=== PATIENT | female | born 1950 | race Caucasian/White ===

== ENCOUNTER → 2022-04-07 | Outpatient (REF) | payer MEDICARE ==
[2022-04-07 10:31] LABS: HEMATOCRIT 41.1 % (36.0-47.0); HEMOGLOBIN 13.3 g/dl (12.0-15.5); MEAN CORPUSCULAR HEMOGLOBIN 29.8 pg (27.0-33.0); MEAN CORPUSCULAR HGB CONC 32.4 g/dl (32.0-36.5); MEAN CORPUSCULAR VOLUME 91.9 fl (80.0-96.0); PLATELET COUNT, AUTOMATED 247 10^3/uL (150-450); RED BLOOD COUNT 4.47 10^6/uL (4.00-5.40)
[2022-04-07 11:03] LABS: ALT/SGPT 19 U/L (12-78); BLOOD UREA NITROGEN 18 MG/DL (7-18); CALCIUM LEVEL 9.6 MG/DL (8.8-10.2); CARBON DIOXIDE LEVEL 25 MEQ/L (21-32); CHLORIDE LEVEL 109 MEQ/L (98-107); CREATININE FOR GFR 0.75 MG/DL (0.55-1.30); GLOMERULAR FILTRATION RATE > 60.0 (>39); GLUCOSE, FASTING 136 MG/DL (70-100); POTASSIUM SERUM 4.5 MEQ/L (3.5-5.1); SODIUM LEVEL 142 MEQ/L (136-145)
[2022-04-07 11:04] LABS: BILIRUBIN,TOTAL 0.6 MG/DL (0.2-1.0); CHOLESTEROL LEVEL 190 MG/DL (<200); CHOLESTEROL RISK RATIO 3.166 (<5); FREE T4 0.99 NG/DL (0.76-1.46); HDL CHOLESTEROL 60 MG/DL (>40); LDL CHOLESTEROL 108 MG/DL (<100); NON-HDL-C 130 MG/DL; THYROID STIMULATING HORMONE 0.955 uIU/ML (0.358-3.740); TOTAL PROTEIN 6.4 GM/DL (6.4-8.2); TRIGLYCERIDES LEVEL 111 MG/DL (<150)
[2022-04-07 11:22] LABS: MALB URINE SIEMENS 23.5 MG/L; MAU/CREAT RATIO 15.2 MCG/MG (0.0-30.0)
[2022-04-07 11:50] LABS: HEMOGLOBIN A1c 6.7 %
== END ==
LOC: M SFHCADAM 08:04
PROVIDERS: ATTEND Family Medicine
DX: E11.9 Type 2 diabetes mellitus without complications (principal); E78.5 Hyperlipidemia, unspecified; I11.9 Hypertensive heart disease without heart failure

== ENCOUNTER → 2022-04-28 | Outpatient (CLI) | payer MEDICARE | LOC: M WHC 13:03 | PROVIDERS: ATTEND Family Medicine | DX: Z12.31 Encounter for screening mammogram for malignant neoplasm of breast (principal); Z13.820 Encounter for screening for osteoporosis; M85.851 Other specified disorders of bone density and structure, right thigh; M85.852 Other specified disorders of bone density and structure, left thigh ==

== ENCOUNTER → 2022-07-11 | Outpatient (CLI) | payer MEDICARE | LOC: M PLAIMG 14:14 | PROVIDERS: ATTEND Physician Assistant | DX: R05.3 Chronic cough (principal); U09.9 Post COVID-19 condition, unspecified ==

== ENCOUNTER → 2022-09-22 | Outpatient (REF) | payer MEDICARE ==
[2022-09-22 13:44] LABS: HEMOGLOBIN A1c 7.2 % (4.0-6.0)
[2022-09-22 14:00] LABS: ALKALINE PHOSPHATASE 87 U/L (46-116); ALT/SGPT 22 U/L (7.0-40); AST/SGOT 16 U/L (<34); BILIRUBIN,TOTAL 0.7 MG/DL (0.3-1.2); BLOOD UREA NITROGEN 19 MG/DL (9-23); CALCIUM LEVEL 9.4 MG/DL (8.3-10.6); CARBON DIOXIDE LEVEL 28 MMOL/L (20-31); CHLORIDE LEVEL 105 MMOL/L (98-107); CHOLESTEROL LEVEL 175 MG/DL (<200); CHOLESTEROL RISK RATIO 3.27 (<5); CREATININE FOR GFR 0.76 MG/DL (0.55-1.30); GLOMERULAR FILTRATION RATE > 60.0 (>39); GLUCOSE, FASTING 144 MG/DL (74-106); HDL CHOLESTEROL 53.4 MG/DL (>40); LDL CHOLESTEROL 98.8 MG/DL (<100); NON-HDL-C 122 MG/DL; POTASSIUM SERUM 4.4 MMOL/L (3.5-5.1); SODIUM LEVEL 140 MMOL/L (136-145); TOTAL PROTEIN 6.3 G/DL (5.7-8.2); TRIGLYCERIDES LEVEL 114 MG/DL (<150)
== END ==
LOC: M SFHCADAM 08:12
PROVIDERS: ATTEND Family Medicine
DX: E78.5 Hyperlipidemia, unspecified (principal); E11.9 Type 2 diabetes mellitus without complications

== ENCOUNTER 2023-02-27 13:20 | Day surgery (SDC) | payer OTHER ==
[~2023-02-27] VITALS: Ht 157.5 cm; Wt 73.2 kg
[~2023-02-27 13:20] MED LIST: ECOT81TA5 PO; LISI10TA22 PO; MELO7.5T35 PO; METF500T13 PO; METO1TAB32 PO; NS 1,000 ML IV ONE; OMEP-173 PO; SIMV40TA20 PO; TRAZ-252 PO
[2023-02-27] MEDS ORDERED: LIDOCAINE 2% 100MG/5ML SDV (FOR ANES.) As Ordered ONE (14:35)
[2023-02-27] MEDS ORDERED: propofoL 200 MG/20 ML VIAL As Ordered ONE ×2 (14:35→15:52)
[2023-02-27 16:40] VITALS: BP 141/80; O2SAT 100
== END 2023-02-27 16:48 | disposition home or self-care (01) ==
LOC: M OPP 13:20
PROVIDERS: ATTEND Internal Medicine Gastroenterology
DX: K64.0 First degree hemorrhoids (principal); K57.30 Diverticulosis of large intestine without perforation or abscess without bleeding; R19.5 Other fecal abnormalities; Z79.02 Long term (current) use of antithrombotics/antiplatelets; Z79.1 Long term (current) use of non-steroidal anti-inflammatories (NSAID); Z79.82 Long term (current) use of aspirin; Z79.84 Long term (current) use of oral hypoglycemic drugs; Z79.899 Other long term (current) drug therapy

== ENCOUNTER → 2023-03-16 | Outpatient (CLI) | payer OTHER ==
[~2023-03-16] MED LIST changes: -NS 1,000 ML IV ONE
== END ==
LOC: M PLARAD 09:19
DX: M48.02 Spinal stenosis, cervical region (principal); R90.89 Other abnormal findings on diagnostic imaging of central nervous system

== ENCOUNTER → 2023-04-10 | Outpatient (CLI) | payer OTHER | LOC: M RAD 10:45 | PROVIDERS: ATTEND Family Medicine | DX: E04.1 Nontoxic single thyroid nodule (principal) ==

== ENCOUNTER → 2024-01-24 | Outpatient (REF) | payer OTHER ==
[2024-01-24 14:48] LABS: ALBUMIN 3.8 G/DL (3.2-5.2); ALKALINE PHOSPHATASE 83 U/L (46-116); ALT/SGPT 18 U/L (7.0-40); AST/SGOT 14 U/L (<34); BILIRUBIN,TOTAL 0.5 MG/DL (0.3-1.2); BLOOD UREA NITROGEN 23 MG/DL (9-23); CALCIUM LEVEL 9.8 MG/DL (8.3-10.6); CARBON DIOXIDE LEVEL 28 MMOL/L (20-31); CHLORIDE LEVEL 107 MMOL/L (98-107); CHOLESTEROL LEVEL 184 MG/DL (<200); CHOLESTEROL RISK RATIO 3.96 (<5); CREATININE FOR GFR 0.68 MG/DL (0.55-1.30); GLOMERULAR FILTRATION RATE > 60.0 (>39); GLUCOSE, FASTING 145 MG/DL (74-106); HDL CHOLESTEROL 46.4 MG/DL (>40); LDL CHOLESTEROL 108.8 MG/DL (<100); NON-HDL-C 137.6 MG/DL; POTASSIUM SERUM 4.5 MMOL/L (3.5-5.1); SODIUM LEVEL 141 MMOL/L (136-145); TOTAL PROTEIN 6.2 G/DL (5.7-8.2); TRIGLYCERIDES LEVEL 144 MG/DL (<150)
[2024-01-24 14:51] LABS: FREE T4 1.04 NG/DL (0.89-1.76); THYROID STIMULATING HORMONE 1.297 uIU/ML (0.55-4.78)
[2024-01-24 14:54] LABS: HEMATOCRIT 42.5 % (36.0-47.0); HEMOGLOBIN 13.8 g/dl (12.0-15.5); MEAN CORPUSCULAR HGB CONC 32.5 g/dl (32.0-36.5); MEAN CORPUSCULAR VOLUME 92.4 fl (80.0-96.0); PLATELET COUNT, AUTOMATED 258 10^3/uL (150-450); WHITE BLOOD COUNT 8.8 10^3/uL (4.0-10.0)
== END ==
LOC: M SFHCADAM 08:49
PROVIDERS: ATTEND Family Medicine
DX: I11.9 Hypertensive heart disease without heart failure (principal); E11.9 Type 2 diabetes mellitus without complications; E78.5 Hyperlipidemia, unspecified; E04.1 Nontoxic single thyroid nodule; M72.2 Plantar fascial fibromatosis

== ENCOUNTER → 2024-02-15 | Outpatient (CLI) | payer OTHER | LOC: M RAD 13:05 | PROVIDERS: ATTEND Family Medicine | DX: E04.2 Nontoxic multinodular goiter (principal) ==

== ENCOUNTER → 2024-04-18 | Outpatient (REF) | payer OTHER | LOC: M SFHCADAM 11:02 | PROVIDERS: ATTEND Family Medicine | DX: E11.9 Type 2 diabetes mellitus without complications (principal); R42 Dizziness and giddiness ==

== ENCOUNTER → 2024-04-22 | Outpatient (REF) | payer OTHER ==
[2024-04-22 13:20] LABS: APPEARANCE, URINE CLEAR (CLEAR); BACTERIA, URINE AUTO NEGATIVE (NEGATIVE); BILIRUBIN, URINE AUTO NEGATIVE (NEGATIVE); BLOOD, URINE BLOOD NEGATIVE (NEGATIVE); COLOR, URINE YELLOW (YELLOW); GLUCOSE, URINE (UA) AUTO NEGATIVE (NEGATIVE); KETONE, URINE AUTO NEGATIVE (NEGATIVE); LEUKOCYTE ESTERASE, URINE AUTO 1+ (NEGATIVE); MUCUS, URINE SMALL (NEGATIVE); NITRITE, URINE AUTO NEGATIVE (NEGATIVE); PROTEIN, URINE AUTO NEGATIVE (NEGATIVE); RBC, URINE AUTO 1 /HPF (0-3); SQUAMOUS EPITHELIAL CELL UR AU 2 /HPF (0-6); UROBILINOGEN, URINE AUTO 0.2 mg/dL (0.0-2.0); WBC, URINE AUTO 5 /HPF (0-3)
[2024-04-22 13:41] LABS: HEMOGLOBIN A1c 6.6 % (4.0-6.0)
[2024-04-22 13:52] LABS: VITAMIN B12 LEVEL 279 PG/ML (211-911)
[2024-04-22 13:56] LABS: BLOOD UREA NITROGEN 21 MG/DL (9-23); CALCIUM LEVEL 9.6 MG/DL (8.3-10.6); CARBON DIOXIDE LEVEL 28 MMOL/L (20-31); CHLORIDE LEVEL 107 MMOL/L (98-107); CREATININE FOR GFR 0.72 MG/DL (0.55-1.30); GLOMERULAR FILTRATION RATE > 60.0 (>39); GLUCOSE, FASTING 120 MG/DL (74-106); POTASSIUM SERUM 4.6 MMOL/L (3.5-5.1); SODIUM LEVEL 140 MMOL/L (136-145)
[2024-04-22 14:00] LABS: CREATININE, URINE 51.7 MG/DL; MALB URINE SIEMENS < 3.0 MG/L; MAU/CREAT RATIO 5.8 MCG/MG (0.0-30.0)
== END ==
LOC: M SFHCADAM 08:16
PROVIDERS: ATTEND Family Medicine
DX: E11.9 Type 2 diabetes mellitus without complications (principal); R42 Dizziness and giddiness; Z79.899 Other long term (current) drug therapy

== ENCOUNTER → 2024-06-12 | Outpatient (REF) | payer OTHER | LOC: M SFHCDERM 17:56 | PROVIDERS: ATTEND Physician Assistant | DX: L82.0 Inflamed seborrheic keratosis (principal) ==

== ENCOUNTER → 2024-06-12 | Outpatient (REF) | payer OTHER ==
[2024-06-12 13:11] LABS: BLOOD UREA NITROGEN 19 MG/DL (9-23); CARBON DIOXIDE LEVEL 27 MMOL/L (20-31); CHLORIDE LEVEL 108 MMOL/L (98-107); CREATININE FOR GFR 0.65 MG/DL (0.55-1.30); GLOMERULAR FILTRATION RATE > 60.0 (>39); GLUCOSE, FASTING 106 MG/DL (74-106); POTASSIUM SERUM 4.4 MMOL/L (3.5-5.1); SODIUM LEVEL 139 MMOL/L (136-145)
[2024-06-12 13:20] LABS: HEMOGLOBIN A1c 6.5 % (4.0-6.0)
== END ==
LOC: M SFHCADAM 09:49
PROVIDERS: ATTEND Family Medicine
DX: E11.9 Type 2 diabetes mellitus without complications (principal)

== ENCOUNTER → 2024-10-21 | Outpatient (CLI) | payer MEDICARE | LOC: M RAD 10:36 | PROVIDERS: ATTEND Nurse Practitioner Family | DX: M47.26 Other spondylosis with radiculopathy, lumbar region (principal) ==

== ENCOUNTER → 2024-11-08 | Outpatient (REF) | payer MEDICARE ==
[2024-11-08 14:58] LABS: BLOOD UREA NITROGEN 23 MG/DL (9-23); CALCIUM LEVEL 10.1 MG/DL (8.3-10.6); CARBON DIOXIDE LEVEL 28 MMOL/L (20-31); CHLORIDE LEVEL 104 MMOL/L (98-107); CREATININE FOR GFR 0.74 MG/DL (0.55-1.30); GLOMERULAR FILTRATION RATE > 60.0 (>39); GLUCOSE, FASTING 91 MG/DL (74-106); MAGNESIUM LEVEL 1.8 MG/DL (1.8-2.4); POTASSIUM SERUM 5.3 MMOL/L (3.5-5.1); SODIUM LEVEL 142 MMOL/L (136-145)
[2024-11-08 15:02] LABS: FREE T4 1.37 NG/DL (0.89-1.76)
[2024-11-08 15:03] LABS: THYROID STIMULATING HORMONE 1.535 uIU/ML (0.55-4.78)
== END ==
LOC: M SFHCADAM 10:33
PROVIDERS: ATTEND Physician Assistant
DX: R00.2 Palpitations (principal)

== ENCOUNTER → 2024-11-11 | Outpatient (REF) | payer MEDICARE ==
[2024-11-11 18:17] LABS: BLOOD UREA NITROGEN 24 MG/DL (9-23); CALCIUM LEVEL 9.8 MG/DL (8.3-10.6); CARBON DIOXIDE LEVEL 27 MMOL/L (20-31); CHLORIDE LEVEL 106 MMOL/L (98-107); CREATININE FOR GFR 0.71 MG/DL (0.55-1.30); GLOMERULAR FILTRATION RATE > 60.0 (>39); GLUCOSE, FASTING 91 MG/DL (74-106); POTASSIUM SERUM 4.7 MMOL/L (3.5-5.1); SODIUM LEVEL 143 MMOL/L (136-145)
== END ==
LOC: M SFHCADAM 13:44
PROVIDERS: ATTEND Physician Assistant
DX: I10 Essential (primary) hypertension (principal)

== ENCOUNTER → 2025-01-14 | Outpatient (CLI) | payer MEDICARE ==
[2025-01-14 13:36] LABS: HEMATOCRIT 41.8 % (36.0-47.0); HEMOGLOBIN 13.1 g/dl (12.0-15.5); MEAN CORPUSCULAR HEMOGLOBIN 29.2 pg (27.0-33.0); MEAN CORPUSCULAR HGB CONC 31.3 g/dl (32.0-36.5); MEAN CORPUSCULAR VOLUME 93.1 fl (80.0-96.0); PLATELET COUNT, AUTOMATED 280 10^3/uL (150-450); RED BLOOD COUNT 4.49 10^6/uL (4.00-5.40); WHITE BLOOD COUNT 9.7 10^3/uL (4.0-10.0)
[2025-01-14 14:08] LABS: HEMOGLOBIN A1c 6.6 % (4.0-6.0)
[2025-01-14 14:11] LABS: C REACTIVE PROTEIN QUANTITATIV < 0.50 MG/DL (<1.0); CHOLESTEROL LEVEL 179 MG/DL (<200); CHOLESTEROL RISK RATIO 3.61 (<5); FREE T4 1.22 NG/DL (0.89-1.76); HDL CHOLESTEROL 49.5 MG/DL (>40); LDL CHOLESTEROL 97.1 MG/DL (<100); NON-HDL-C 129.5 MG/DL; THYROID STIMULATING HORMONE 1.112 uIU/ML (0.55-4.78); TRIGLYCERIDES LEVEL 162 MG/DL (<150)
== END ==
LOC: M WUC 08:15
PROVIDERS: ATTEND Family Medicine
DX: M19.049 Primary osteoarthritis, unspecified hand (principal); E78.5 Hyperlipidemia, unspecified; E11.9 Type 2 diabetes mellitus without complications; E04.1 Nontoxic single thyroid nodule

== ENCOUNTER → 2025-04-17 | Outpatient (CLI) | payer MEDICARE ==
[~2025-04-17] MED LIST changes: +PROHANCE 279.3MG/ML 15ML VIAL ONE
== END ==
LOC: M PLAIMG 14:12
PROVIDERS: ATTEND Pain Medicine Pain Medicine
DX: M50.20 Other cervical disc displacement, unspecified cervical region (principal); M50.30 Other cervical disc degeneration, unspecified cervical region; M47.812 Spondylosis without myelopathy or radiculopathy, cervical region; M48.02 Spinal stenosis, cervical region
CPT/HCPCS: 72156; A9576

== ENCOUNTER → 2025-05-14 | Outpatient (REF) | payer MEDICARE ==
[~2025-05-14] MED LIST changes: -PROHANCE 279.3MG/ML 15ML VIAL ONE
[2025-05-14 15:13] LABS: CREATININE FOR GFR 0.7 MG/DL (0.55-1.30); GLOMERULAR FILTRATION RATE 89.6 (>39)
== END ==
LOC: M LABDRWAD 13:07
PROVIDERS: ATTEND Nurse Practitioner Family
DX: M54.2 Cervicalgia (principal)

== ENCOUNTER → 2025-07-17 | Outpatient (REF) | payer MEDICARE ==
[2025-07-17 13:14] LABS: CALCIUM LEVEL 9.0 MG/DL (8.3-10.6); CARBON DIOXIDE LEVEL 27.0 MMOL/L (20-31); CHLORIDE LEVEL 107.0 MMOL/L (98-107); CREATININE FOR GFR 0.74 MG/DL (0.55-1.30); GLOMERULAR FILTRATION RATE 83.8 (>39); POTASSIUM SERUM 4.8 MMOL/L (3.5-5.1); SODIUM LEVEL 141.0 MMOL/L (136-145)
[2025-07-17 13:32] LABS: ESTIMATED AVERAGE GLUCOSE 163.0 MG/DL (60-110)
== END ==
LOC: M SFHCDERM 08:55
PROVIDERS: ATTEND Family Medicine
DX: E11.9 Type 2 diabetes mellitus without complications (principal)